=== PATIENT | female | born 1960 | race Caucasian/White ===

== ENCOUNTER 2024-06-15 15:54 | Emergency (ER) | payer OTHER, SELFPAY ==
[2024-06-15 15:58] VITALS: BP 119/56; PULSE 60; TEMP 36.5; O2SAT 97; BMI 37.1
--- NOTE | 2024-06-15 16:04 | XR_ITS ---
The [address] [address] Patient Name: SHEFALI MAY MRN: [id number] date: 1960 Sex: F Assigned Patient Location: ER Current Patient Location: ER Accession/Order Number: [id number] Exam Date: 06/15/2024 16:30 Report Date: 06/15/2024 17:35 At the request of: INEZ HUMPHREYS Procedure: XR forearm LT 2V EXAM: XR forearm LT 2V, XR wrist DIONY min 3V, XR hand DIONY 2V HISTORY: pain fall COMPARISON: None. TECHNIQUE: Multiple views of bilateral wrists and hands as well as 2 views of the left forearm FINDINGS: Acute complete comminuted impacted intra-articular distal radial fracture is seen with extension to the radiocarpal joint and dorsal angulation of distal fracture fragment. Displaced avulsion fracture of the left ulnar styloid is seen. Soft tissue swelling seen about the left wrist. Joint alignment is normal. Joint spaces are preserved. A questionable cortical irregularity of the radial aspect of the right proximal fifth metacarpal may be seen, which may represent a subtle acute fracture. Please correlate clinically. Please note images of the bilateral hands are limited as oblique view is not obtained. No acute fracture is seen about the right wrist. XR/XR forearm LT 2V IMPRESSION: Acute comminuted impacted and angulated intra-articular distal left radial fracture. Displaced avulsion fracture of the ulnar styloid of the left wrist. A questionable cortical irregularity of the radial aspect of the right proximal fifth metacarpal may be seen, which may represent a subtle acute fracture. Please correlate clinically. Electronically authenticated by: ALMA MELTON Date: 06/15/2024 17:35
--- NOTE | 2024-06-15 16:04 | XR_ITS ---
The [address] [address] Patient Name: SHEFALI MAY MRN: [id number] date: 1960 Sex: F Assigned Patient Location: ER Current Patient Location: Accession/Order Number: [id number] Exam Date: 06/15/2024 16:30 Report Date: 06/15/2024 17:35 At the request of: INEZ HUMPHREYS Procedure: XR hand DIONY 2V EXAM: XR forearm LT 2V, XR wrist DIONY min 3V, XR hand DIONY 2V HISTORY: pain fall COMPARISON: None. TECHNIQUE: Multiple views of bilateral wrists and hands as well as 2 views of the left forearm FINDINGS: Acute complete comminuted impacted intra-articular distal radial fracture is seen with extension to the radiocarpal joint and dorsal angulation of distal fracture fragment. Displaced avulsion fracture of the left ulnar styloid is seen. Soft tissue swelling seen about the left wrist. Joint alignment is normal. Joint spaces are preserved. A questionable cortical irregularity of the radial aspect of the right proximal fifth metacarpal may be seen, which may represent a subtle acute fracture. Please correlate clinically. Please note images of the bilateral hands are limited as oblique view is not obtained. No acute fracture is seen about the right wrist. XR/XR hand DIONY 2V IMPRESSION: Acute comminuted impacted and angulated intra-articular distal left radial fracture. Displaced avulsion fracture of the ulnar styloid of the left wrist. A questionable cortical irregularity of the radial aspect of the right proximal fifth metacarpal may be seen, which may represent a subtle acute fracture. Please correlate clinically. Electronically authenticated by: ALMA MELTON Date: 06/15/2024 17:35
--- NOTE | 2024-06-15 16:04 | XR_ITS ---
The [address] [address] Patient Name: SHEFALI MAY MRN: [id number] date: 1960 Sex: F Assigned Patient Location: ER Current Patient Location: Accession/Order Number: [id number] Exam Date: 06/15/2024 16:30 Report Date: 06/15/2024 17:35 At the request of: INEZ HUMPHREYS Procedure: XR wrist DIONY min 3V EXAM: XR forearm LT 2V, XR wrist DIONY min 3V, XR hand DIONY 2V HISTORY: pain fall COMPARISON: None. TECHNIQUE: Multiple views of bilateral wrists and hands as well as 2 views of the left forearm FINDINGS: Acute complete comminuted impacted intra-articular distal radial fracture is seen with extension to the radiocarpal joint and dorsal angulation of distal fracture fragment. Displaced avulsion fracture of the left ulnar styloid is seen. Soft tissue swelling seen about the left wrist. Joint alignment is normal. Joint spaces are preserved. A questionable cortical irregularity of the radial aspect of the right proximal fifth metacarpal may be seen, which may represent a subtle acute fracture. Please correlate clinically. Please note images of the bilateral hands are limited as oblique view is not obtained. No acute fracture is seen about the right wrist. XR/XR wrist DOINY min 3V IMPRESSION: Acute comminuted impacted and angulated intra-articular distal left radial fracture. Displaced avulsion fracture of the ulnar styloid of the left wrist. A questionable cortical irregularity of the radial aspect of the right proximal fifth metacarpal may be seen, which may represent a subtle acute fracture. Please correlate clinically. Electronically authenticated by: ALMA MELTON Date: 06/15/2024 17:35
[2024-06-15] MEDS: KETOROLAC TROMETHAMINE 60 MG/2 ML VIAL IM (16:16)
[2024-06-15] MEDS: OXYCODONE HCL/ACETAMINOPHEN 5MG/325MG 1 TAB PO (16:50)
[2024-06-15] MEDS: LIDOCAINE HCL 1% 100 MG/10 ML MDV INJ (16:51)
--- NOTE | 2024-06-15 18:24 | XR_ITS ---
The [address] [address] Patient Name: SHEFALI MAY MRN: [id number] date: 1960 Sex: F Assigned Patient Location: ER Current Patient Location: Accession/Order Number: [id number] Exam Date: 06/15/2024 18:35 Report Date: 06/15/2024 19:50 At the request of: INEZ HUMPHREYS Procedure: XR forearm LT 2V EXAM: XR forearm LT 2V HISTORY: post reduction COMPARISON: XR forearm LT 2V Study Date: 06/15/2024 4:14:36 PM TECHNIQUE: 2 views of the left forearm FINDINGS: Images are obtained without the left forearm in a splint which obscures bony detail. Acute comminuted impacted angulated intra-articular distal radial fracture is again seen with improved alignment, but with mild persistent angulation. Ulnar styloid fracture is also again seen. XR/XR forearm LT 2V IMPRESSION: Images are obtained without the left forearm in a splint which obscures bony detail. Acute comminuted impacted angulated intra-articular distal radial fracture is again seen with improved alignment, but with mild persistent angulation. Ulnar styloid fracture is also again seen. Electronically authenticated by: ALMA MELTON Date: 06/15/2024 19:50
--- NOTE | 2024-06-15 18:25 | ED_ITS ---
HPI HPI - General Adult General Chief complaint: Extremity Injury, Upper Stated complaint: FALL Time Seen by Provider: 06/15/24 15:59 Source: patient Mode of arrival: walk-in Limitations: no limitations History of Present Illness HPI narrative: Patient is coming to the ER after he sustained a work injury she was at work when she tripped and fell on her both arms. She is complaining of right hand pain as well as left forearm deformity is obvious on examination. The patient ready brought to us with a splint applied Related Data Home Medications ?Medication ?Instructions ?Recorded ?Confirmed lisinopril 10 mg tablet 10 mg PO DAILY 06/15/24 06/15/24 Previous Rx's ?Medication ?Instructions ?Recorded cephalexin 500 mg capsule 500 mg PO Q8H 7 days #21 caps 06/15/24 oxycodone-acetaminophen 5 mg-325 1 tab PO Q8H PRN pain 5 days #15 06/15/24 mg tablet (Percocet) tabs Allergies Allergy/AdvReac Type Severity Reaction Status Date / Time No Known Drug Allergies Allergy Verified 06/15/24 16:01 Opioid HPI Opioid Management Most Recent Opioid Data: Last Pain Scale 6 06/15/24 16:50 Last MAR Pain Assessment 06/15/24 16:50 Review of Systems ROS Status of ROS 10 or more systems reviewed and unremark able except as noted in history and below Exam Narrative Exam Narrative: Nurses notes and vital signs reviewed and patient is not hypoxic. General: Well-appearing and in no apparent distress. Skin: Warm, dry, no pallor noted. No rash. Head: Normocephalic, atraumatic. Neck: Supple, non-tender. Eye: Pupils are equal, round and EOMI. No scleral icterus. Ears, Nose, Mouth, and Throat: TM are clear, no nasal mucosal hypertrophy. Oral mucosa is moist, no posterior oropharynx erythema, uvula is mid-line Cardiovascular: Regular Rate and Rhythm without murmur, gallop or rub. Respiratory: No accessory muscle use or respiratory distress. Lungs are clear to auscultation, no wheezing, rales or rhonchi Chest Wall: no tenderness Back: No midline thoracic or lumbar vertebral tenderness. No CVA tenderness Musculoskeletal: Obvious deformity of the left forearm mostly at the distal radius and the patient also have swelling in the right hand no vascular injury detected patient have a good radial pulse and capillary refill GI: Abdomen is soft, non-distended. Normal bowel sounds. No masses appreciated. No tenderness to palpation. No rebound, guarding, or rigidity noted. Neurological: A&O x4. No cranial nerve dysfunction observed. No truncal ataxia. Moves all extremities. Sensation intact. Psychiatric: Cooperative and interactive. Normal mood and affect. Constitutional Vital Signs, click to edit/add: Last Vital Signs Temp 97.7 F 06/15/24 15:58 Pulse 60 06/15/24 15:58 Resp 18 06/15/24 15:58 BP 119/56 06/15/24 15:58 Pulse Ox 97 06/15/24 15:58 O2 Del Method Room Air 06/15/24 15:58 Course Vital Signs Vital signs: Vital Signs Temperature 97.7 F 06/15/24 15:58 Pulse Rate 60 06/15/24 15:58 Respiratory Rate 18 06/15/24 15:58 Blood Pressure 119/56 06/15/24 15:58 Pulse Oximetry 97 06/15/24 15:58 Oxygen Delivery Method Room Air 06/15/24 15:58 Temperature 97.7 F 06/15/24 15:58 Pulse Rate 60 06/15/24 15:58 Respiratory Rate 18 06/15/24 15:58 Blood Pressure 119/56 06/15/24 15:58 Pulse Oximetry 97 06/15/24 15:58 Oxygen Delivery Method Room Air 06/15/24 15:58 Medical Decision Making MDM Narrative Medical decision making narrative: X-ray of the patient's left forearm showed obvious fracture and the patient had a hematoma block applied with infiltrating the area with 1% lidocaine almost 5 cc The patient then had her case discussed with Dr. Flower the plan is to take an x-ray postreduction and discussed the case with him after that I Dr. Flower the results of the x-ray after reduction and according to him this is better but she still need to be evaluated by him in his [place] office tomorrow at 8 AM The patient work comp papers were filled and I did update the worker at [facility] according to the number provided for update about the fact that the patient will need Percocet as well as possible surgery tomorrow The patient to stay n.p.o. after midnight and also to elevate her arm The patient also instructed about the proper care of her splint including the right hand splint after she have a metacarpal fracture on the x-ray of the right hand Patient to come back to us in case of any new symptoms of concern but she will follow-up with Dr. Flower tomorrow at 8 AM as well as work comp Discharge Plan Discharge Stand Alone Forms: Portal Instructions Chief Complaint: Extremity Injury, Upper Clinical Impression: Fracture of ulnar styloid, Left radial fracture, Fracture of metacarpal Patient Disposition: Home, Self-Care Time of Disposition Decision: 19:12 Condition: Good Prescriptions / Home Meds: New oxycodone-acetaminophen [Percocet] 5-325 mg tablet 1 tab PO Q8H PRN (Reason: pain) 5 Days Qty: 15 0RF cephalexin 500 mg capsule 500 mg PO Q8H 7 Days Qty: 21 0RF No Action lisinopril 10 mg tablet 10 mg PO DAILY Print Language: Sri Lankan Instructions: Arm Fracture in Adults (DC), Hand Fracture (DC) Referrals: [facility] [Outside] - As soon as possible ANTHONY SALDANA [Primary Care Provider] - 1 week González Flower MD [Physician] - 06/16/24 8:00 am (Address: [address] [place] [address] Dr Lind [address] [place] [id number] Hours: Closed ? Opens 8?AM Wed )
[2024-06-15 19:45] VITALS: BP 138/89; PULSE 78; O2SAT 97
== END 2024-06-15 19:45 | disposition home or self-care (01) ==
PROVIDERS: Emergency Provider Emergency Medicine; PCP Family Medicine
DX: S52.502A Unspecified fracture of the lower end of left radius, initial encounter for closed fracture (principal); S62.306A Unspecified fracture of fifth metacarpal bone, right hand, initial encounter for closed fracture; S52.612A Displaced fracture of left ulna styloid process, initial encounter for closed fracture; W01.0XXA Fall on same level from slipping, tripping and stumbling without subsequent striking against object, initial encounter
CPT/HCPCS: 25605; 73090; 73110; 73120; 96372; 99285; J1885

== ENCOUNTER 2024-06-18 07:54 | Outpatient (OUT) | payer SELFPAY ==
--- NOTE | 2024-06-18 08:07 | ECG_ITS ---
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
[2024-06-18 09:42] LABS: Anion Gap 13.7; BUN Creatinine Ratio 14.5; Calcium 9.4 mg/dL (8.5-10.1); Carbon Dioxide 26.5 mmol/L (21.0-32.0); Chloride 101 mmol/L (98-107); Estimated GFR (African America >60 (>=60); Estimated GFR (Non-African Ame >60 (>=60); Glucose 126 mg/dL (74-106); Potassium 4.2 mmol/L (3.5-5.1); Sodium 137 mmol/L (136-145)
[2024-06-18 09:49] LABS: Basophils Absolute Auto 0.1 10^3/uL (0.0-0.1); Basophils Percent Auto 0.8 % (0.2-2.0); Eosinophils Absolute Auto 0.5 10^3/uL (0.0-0.7); Eosinophils Percent Auto 4.2 % (0.9-7.0); Hematocrit 39.4 % (36.0-48.0); Hemoglobin 11.6 g/dL (12.0-16.0); Immature Granulocytes Abs Auto 0.03 10^3/uL (0.00-0.03); Immature Granulocytes Pct Auto 0.3 % (0.0-0.5); Lymphocytes Absolute Auto 2.1 10^3/uL (1.2-3.8); Mean Corpuscular HGB Conc 29.4 g/dL (29.9-35.2); Mean Corpuscular Volume 61.1 fL (81.0-99.0); Monocytes Absolute Auto 0.6 10^3/uL (0.3-0.8); Monocytes Percent Auto 5.7 % (1.7-12.0); Neutrophils Absolute Auto 7.3 10^3/uL (1.4-6.5); Platelet Count 378 10^3/uL (150-450); Red Blood Count 6.45 10^6/uL (4.20-5.40); Red Cell Distribution Width 17.3 % (11.0-15.0); White Blood Count 10.6 10^3/uL (4.0-11.0)
[2024-06-18 09:52] LABS: INR 0.95; Partial Thromboplastin Time 27.6 sec (22.3-36.2); Prothrombin Time 10.1 sec (9.0-11.6)
== END 2024-06-18 07:55 | disposition home or self-care (01) ==
LOC: PST 07:55
PROVIDERS: PCP Family Medicine; Visit Provider Orthopaedic Surgery
DX: Z01.810 Encounter for preprocedural cardiovascular examination (principal); Z01.812 Encounter for preprocedural laboratory examination; S52.509A Unspecified fracture of the lower end of unspecified radius, initial encounter for closed fracture
CPT/HCPCS: 80048; 85025; 85610; 85730; 93005

== ENCOUNTER 2024-06-23 12:22 | Day surgery (SDC) | payer OTHER, SELFPAY ==
[2024-06-18 08:44] VITALS: BP 130/79; PULSE 56; TEMP 36.6; O2SAT 98; BMI 37.6
[2024-06-23] VITALS (10 sets, daily range): BP systolic 111–142; BP diastolic 49–73; PULSE 80–91; TEMP 36.4; O2SAT 91–98; BMI 37.3
[2024-06-23 12:33] LABS: Basophils Absolute Auto 0.1 10^3/uL (0.0-0.1); Eosinophils Absolute Auto 0.5 10^3/uL (0.0-0.7); Hematocrit 39.5 % (36.0-48.0); Hemoglobin 11.6 g/dL (12.0-16.0); Immature Granulocytes Abs Auto 0.03 10^3/uL (0.00-0.03); Immature Granulocytes Pct Auto 0.3 % (0.0-0.5); Lymphocytes Absolute Auto 2.5 10^3/uL (1.2-3.8); Lymphocytes Percent Auto 28.2 % (20.5-60.0); Mean Corpuscular HGB Conc 29.4 g/dL (29.9-35.2); Mean Corpuscular Volume 61.1 fL (81.0-99.0); Mean Platelet Volume 9.4 fL (9.5-13.5); Monocytes Absolute Auto 0.6 10^3/uL (0.3-0.8); Monocytes Percent Auto 6.4 % (1.7-12.0); Neutrophils Absolute Auto 5.2 10^3/uL (1.4-6.5); Neutrophils Percent Auto 58.1 % (43.0-75.0); Platelet Count 461 10^3/uL (150-450); Red Blood Count 6.46 10^6/uL (4.20-5.40); Red Cell Distribution Width 17.4 % (11.0-15.0); White Blood Count 8.9 10^3/uL (4.0-11.0)
[2024-06-23] MEDS: LACTATED RINGER'S SOLUTION 1,000 ML 50 ML IV (12:52)
[2024-06-23] MEDS: SCOPOLAMINE 1 MG/3 DAYS TRANSDERM PATCH 1 PATCH TD (13:20)
--- NOTE | 2024-06-23 14:00 | FL_ITS ---
[address] [address] Patient Name: SHEFALI MAY MRN: [id number] date: 1960 Sex: F Assigned Patient Location: SURGOUT Current Patient Location: [facility] Accession/Order Number: [id number] Exam Date: 06/23/2024 14:10 Report Date: 06/25/2024 08:17 At the request of: ANA DRIVER Procedure: FL fluoroscopy <1hr NON-READ EXAM: FL fluoroscopy <1hr NON-READ HISTORY: TECHNIQUE: FINDINGS: Please see Operative Report. Electronically authenticated by: RADIOLOGIST NO Date: 06/25/2024 08:17
[2024-06-23] MEDS: CEFAZOLIN SODIUM/DEXTROSE,ISO 2 GM/50 ML PIGGYBACK IV (14:08)
--- NOTE | 2024-06-23 16:10 | P.ORPRC_ITS ---
Procedure Note Date of procedure: 06/23/24 Pre-op diagnosis: Greater than 4 part intra-articular left distal radius fracture Post-op diagnosis: same as pre-op Procedure: Procedure: Open reduction internal fixation left distal radius fracture Surgeon: Hunter Flower MD Anesthesia: General with regional block Estimated blood loss: Minimal Specimens: None Complications: None Condition: Stable Consent: The risks, benefits, potential complications and outcomes of the proposed treatment(s) were discussed at length with the patient and family members present. They understood and have had all of their questions answered to their satisfaction and have elected to proceed. Findings: Reduced distal radius fracture with appropriate implant placement and lengths Detailed Description of Procedure: After informed consent was obtained the patient brought to the operating room where general anesthetic was administered. Preoperatively regional block was placed. A well-padded proximal arm tourniquet was placed on the right arm was prepped and draped in usual sterile fashion. The arm was elevated, exsanguinated, and the tourniquet was inflated to 225 mmHg. A 6 cm incision made overlying the flexor carpi radialis tendon overlying the distal radius. Blunt dissection was carried down through soft tissue. The flexor carpi radialis tendon was retracted ulnarly along with the flexor pollicis longus muscle and tendon. Pronator quadratus was incised in an L- shaped fashion off of the bone. Distal radius fracture was identified at this point and found to be intra-articular and comminuted. Using a combination of traction and manipulation and reduction was performed and appropriate reduction was confirmed under x-ray. A Synthes by column distal radius plate was then placed and provisionally held into place with K wires. This was adjusted until the appropriate position was achieved under multiple fluoroscopy views. The plate was then first fixed with a 2.7 bicortical nonlocking screw in the oblong hole in the shaft. Holding the distal fragments reduced a total of 6 unicortical 2.4 mm locking screws were placed at the distal fragments followed by an additional 2 screws placed in the shaft in a bicortical locking fashion. Final x-rays in multiple planes revealed a reduced distal radius fracture with appropriate implant placement and lengths. Wound was irrigated. Pronator quadratus was repaired with an 0 Vicryl suture. Skin was closed with observable suture in layers. Well-padded dressing was placed followed by a fiberglass volar splint. Turning was deflated. Patient was awakened and brought to the recovery room in stable condition. There are no intraoperative or immediate postoperative complications. Surgeon: González Flower Estimated blood loss (mL): 5 Pathology: none sent Condition: stable Disposition: PACU
== END 2024-06-23 17:40 | disposition home or self-care (01) ==
PROVIDERS: Anesthesiology; PCP Family Medicine; Visit Provider Orthopaedic Surgery
PROC: (CPT 25609; principal; 2024-06-23 12:30)
DX: S52.572A Other intraarticular fracture of lower end of left radius, initial encounter for closed fracture (principal); W01.0XXA Fall on same level from slipping, tripping and stumbling without subsequent striking against object, initial encounter
CPT/HCPCS: 25609; 36415; 64417; 76000; 85025; C1713; J0330; J0690; J1100; J1885; J2250; J2371; J2405; J2795

== ENCOUNTER 2024-07-05 08:16 | Outpatient (OUT) | payer OTHER, SELFPAY ==
--- NOTE | 2024-07-05 | XR_ITS ---
The [address] [address] Patient Name: SHEFALI MAY MRN: [id number] date: 1960 Sex: F Assigned Patient Location: Current Patient Location: Accession/Order Number: [id number] Exam Date: 07/05/2024 08:25 Report Date: 07/07/2024 04:37 At the request of: ANA DRIVER Procedure: XR wrist LT min 3V PROCEDURE: XR wrist LT min 3V HISTORY: LEFT WRIST PAIN COMPARISON: XR form left 06/15/2024 FINDINGS: BONES:Surgical repair of comminuted distal radius fracture via anterior plate and screws; no appreciable hardware fracture loosening. Improved alignment of previously seen comminuted fractures with intra-articular extension. Displaced fracture of ulnar styloid process. Intact carpal bones. SOFT TISSUES:Mild soft tissue swelling. Images were obtained through cast material. EFFUSION:None visible. OTHER: Negative. XR/XR wrist LT min 3V IMPRESSION: 1. Surgical repair of distal left radius comminuted fractures without evidence of hardware failure. 2. Grossly stable displaced ulnar styloid process fracture. Electronically authenticated by: ANA LUCAS Date: 07/07/2024 04:37
--- OUTSIDE RECORDS SUMMARY | 2024-07-05 08:19 | XMS_ITS | CCD ---
Author Organization [facility] Care Team Providers Care Sales Representative Groceries Name Role Phone LES, DR CRUZ Attending Unavailable LES, DR CRUZ Consulting Unavailable LES, DR CRUZ Admitting Unavailable KHADIJAH STANLEY Attending Unavailable Problems Active Problems Problem Classification Problem Date Documented Da te Episodic/Chronic Unclassified (2 sources) CONTACT W/AND (SUSP) EXPOS COVID-19; Translations: [CONTACT W/AND (SUSP) EXPOS COVID-19] Onset: 12-13-2021 Viral infection (1 source) COVID-19; Translations: [COVID-19] Onset: 12-13-2021 Past or Other Problems Problem Classification Problem Date Documented Da te Episodic/Chronic Unclassified (1 source) CONTACT W/AND (SUSP) EXPOS COVID-19; Translations: [CONTACT W/AND (SUSP) EXPOS COVID-19] Onset: 12-07-2021 Results Test Name Value Interpretation Reference Range Facil ity Covid-19 PCR (CVDTBH)on SARS-CoV-2 (COVID-19) RNA KAIDEN+probe Ql (Unsp spec) Detected Critically abnormal NOT DETECTED The [facility] Comment on above: Result Comment: This test is not yet estrella roved or cleared by the [place] FDA. When there are no FDA-approved or cleared tests available, and other criteria are met, FDA can make tests available under an emergency access mechanism called an Emergency Use Authorization (EUA). The EUA for this test is supported by the [employer] of Health and Human Service's (HHS's) declaration that circumstances exist to justify the emergency use of in vitro diagnostics for the detection and/or diagnosis of the virus that causes COVID-19. This EUA will remain in effect (meaning this test can be used) for the duration of the COVID-19 declaration justifying emergency of IVDs, unless it is terminated or revoked by FDA (after which the test may no longer be used). Performed By: #### [facility] #### [facility] [address] [place], [place] [address] Dr. Arnoldo Spaulding Encounters Encounter Date Encounter Type Care Provider Facility Start: 12-30-2023 End: 12-30-2023 ambulatory KHADIJAH STANLEY Not Available Start: 12-07-2021 End: 12-07-[address] ANTHONY SALDANA Facility: Payers Date Payer Category Payer Unknown [id number] 1960 Unknown [id number] 1960 Unknown [id number] 1957 Unknown [id number] Summary Purpose Family History No Family History Records FoundNo Family History Records Found Advance Directives No Advanced Directives Records FoundNo Advanced Directives Records Found Additional Source Comments INFORMATION SOURCE (unrecogn ized section and content) DATE CREATED AUTHOR 12/14/2021 [facility] DATE CREATED AUTHOR AUTHOR'S ORGANIZ ATION 01/01/2024 [facility] EPIC FOR RECORDS PERTAINING TO PATIENTS WHO ARE OR HAVE BEEN ENROLLED IN A CHEMICAL DEPENDENCY/SUBSTANCEABUSE PROGRAM, SOME INFORMATION MAY BE OMITTED. This clinical summary was aggregated from multiple sources. Caution should be exercised in using it in the provision of clinical care. This summary normalizes information from multiple sources, and as a consequence, information in this document may materially change the coding, format and clinical context of patient data. In addition, data may be omitted in some cases. CLINICAL DECISIONS SHOULD BE BASED ON THE PRIMARY CLINICAL RECORDS. [employer] provides no warranty or guarantee of the accuracy or completeness of information in this document.
== END 2024-07-05 08:17 | disposition home or self-care (01) ==
PROVIDERS: PCP Family Medicine; Visit Provider Orthopaedic Surgery
DX: S52.509D Unspecified fracture of the lower end of unspecified radius, subsequent encounter for closed fracture with routine healing (principal); Z98.890 Other specified postprocedural states
CPT/HCPCS: 73110

== ENCOUNTER 2024-08-09 08:11 | Outpatient (OUT) | payer OTHER, SELFPAY ==
--- NOTE | 2024-08-09 | XR_ITS ---
The [address] [address] Patient Name: SHEFALI MAY MRN: [id number] date: 1960 Sex: F Assigned Patient Location: Current Patient Location: Accession/Order Number: [id number] Exam Date: 08/09/2024 08:22 Report Date: 08/09/2024 15:56 At the request of: ANA DRIVER Procedure: XR wrist DIONY min 2v EXAMINATION: XR wrist DIONY min 2v HISTORY: BILATERAL WRIST PAIN COMPARISON: 07/05/2024 FINDINGS: RIGHT FINDINGS: BONES: Remote ulnar styloid process fracture with sclerosis. No acute fracture or dislocation. SOFT TISSUES: Negative. No visible soft tissue swelling. OTHER: Negative. LEFT FINDINGS: BONES: Stable complex distal radius fracture with internal fixation utilizing a plate and screws. Able remote ulnar styloid process fracture No acute fracture or dislocation. SOFT TISSUES: Negative. No visible soft tissue swelling. OTHER: Negative. XR/XR wrist DIONY min 2v IMPRESSION: RIGHT CONCLUSION: No acute fracture LEFT CONCLUSION: Interval healing complex radius fracture with internal fixation Electronically authenticated by: SANKET LOBO Date: 08/09/2024 15:56
== END 2024-08-09 08:12 | disposition home or self-care (01) ==
LOC: EC 08:11
PROVIDERS: PCP Family Medicine; Visit Provider Orthopaedic Surgery
DX: S52.572D Other intraarticular fracture of lower end of left radius, subsequent encounter for closed fracture with routine healing (principal); S62.346A Nondisplaced fracture of base of fifth metacarpal bone, right hand, initial encounter for closed fracture
CPT/HCPCS: 73100

== ENCOUNTER 2024-09-06 08:59 | Outpatient (OUT) | payer OTHER, SELFPAY ==
--- NOTE | 2024-09-06 | XR_ITS ---
The [address] [address] Patient Name: SHEFALI MAY MRN: [id number] date: 1960 Sex: F Assigned Patient Location: Current Patient Location: Accession/Order Number: [id number] Exam Date: 09/06/2024 09:05 Report Date: 09/06/2024 10:49 At the request of: ANA DRIVER Procedure: XR wrist DIONY min 3V EXAMINATION: XR wrist DIONY min 3V HISTORY: BILATERAL WRIST PAIN COMPARISON: 06/15/2024 FINDINGS: RIGHT FINDINGS: BONES: No acute fracture or dislocation. Mild degenerative changes. SOFT TISSUES: Negative. No visible soft tissue swelling. OTHER: Negative. LEFT FINDINGS: BONES: Stable complex distal radius fracture with internal fixation utilizing a right and screws. Continued healing with bone formation. SOFT TISSUES: Negative. No visible soft tissue swelling. OTHER: Negative. XR/XR wrist DIONY min 3V IMPRESSION: RIGHT CONCLUSION: Mild degenerative change LEFT CONCLUSION: Stable healing distal radius fracture with internal fixation Electronically authenticated by: SANKET LOBO Date: 09/06/2024 10:49
== END 2024-09-06 09:00 | disposition home or self-care (01) ==
LOC: EC 09:04
PROVIDERS: PCP Family Medicine; Visit Provider Orthopaedic Surgery
DX: S52.572D Other intraarticular fracture of lower end of left radius, subsequent encounter for closed fracture with routine healing (principal); S62.346D Nondisplaced fracture of base of fifth metacarpal bone, right hand, subsequent encounter for fracture with routine healing
CPT/HCPCS: 73110

== ENCOUNTER 2024-12-03 09:24 | Outpatient (OUT) | payer OTHER, SELFPAY ==
--- NOTE | 2024-12-03 09:31 | MR_ITS ---
The [address] [address] Patient Name: SHEFALI MAY MRN: [id number] date: 1960 Sex: F Assigned Patient Location: MRI Current Patient Location: Accession/Order Number: [id number] Exam Date: 12/03/2024 09:45 Report Date: 12/05/2024 13:09 At the request of: ANA DRIVER Procedure: MR wrist LT wo con EXAM: MR wrist LT wo con REASON FOR EXAM: Closed Intra Articular Fracture Distal End Left Radius. TECHNIQUE: Multiplanar, multisequence imaging of the left wrist was performed without contrast COMPARISON: Radiographs 09/06/2024. FINDINGS: Study degraded by motion susceptibility artifact. There are possible changes from ORIF of a distal radius fracture. The visualized bone marrow signal is without acute fracture or osteonecrosis. Probable ununited ulnar styloid fracture. The visualized intercarpal articulations are intact. No asymmetric widening the scapholunate or lunotriquetral articulations is evident. No radial ulnar sided synovitis. The carpal tunnel is mildly crowded. The median nerve does not appear to be edematous. Guyon's canal is patent. The visualized extensor tendons demonstrate grossly normal thickness and signal without tendinosis or tear. Remaining soft tissues are unremarkable. MR/MR wrist LT wo con IMPRESSION: 1. Post surgical changes without acute osseous abnormality. 2. Ununited ulnar styloid fracture. 3. Mildly crowded carpal tunnel with nonedematous median nerve Electronically authenticated by: DAGOBERTO ROBERTS Date: 12/05/2024 13:09
--- OUTSIDE RECORDS SUMMARY | 2024-12-03 09:37 | XMS_ITS | CCD ---
Author Organization [facility] Care Team Providers Care Contact Center Engineer Name Role Phone DR NONI SALDANA Attending Unavailable LES, DR CRUZ Consulting Unavailable LES, DR CRUZ Admitting Noni Raygoza MD Primary Care Provider KHADIJAH STANLEY Attending Unavailable CIERRA ATKINS Attending Augustineab Noni Donovan MD Primary Care Provider Cris Bishop Primary Care Physician Cris Ruiz Unavailable Unavailable ANA DRIVER Referring Unavailable NONI SALDANA Primary Care Unavailable ANA DRIVER Referring Unavailable NONI SALDANA Primary Care Unavailable ANA DRIVER Referring Unavailable NONI SALDANA Primary Care Unavailable ANA DRIVER Referring Unavailable NONI SALDANA Primary Care Unavailable NONI SALDANA Primary Care Unavailable ANA DRIVER Referring Unavailable Medications Current Medications Medication Drug Class(es) Dates Sig (Normalized) Sig (Original) acetaminophen 325 mg oral tablet (3 sources) acetaminophen (Tylenol) 325 MG tablet every 4 (four) hours. Active Calcium Carbonate / vitamin D3 (1 source) take 1 tablet by mouth once daily calcium carbonate/vitamin D3 (CALCIUM+D ORAL) Take 1 tablet by mouth daily. Active ibuprofen 200 mg oral tablet (3 sources) Nonsteroidal Anti-inflammatory Drug ibuprofen 200 MG tablet every 8 (eight) hours. Active lisinopril 10 mg oral tablet (6 sources) Angiotensin Converting Enzyme Inhibitor Start: 10-19-2024 take 1 tablet by mouth once daily, then take 1 tablet by mouth in the morning lisinopril 10 MG tablet Indications: Primary hypertension (CMS/HCC) Take 1 tablet (10 mg) by mouth Daily TAKE 1 TABLET(10 MG) BY MOUTH IN THE MORNING 90 tablet 3 10/19/2024 Active Start: 10-19-2024 take 1 tablet by bassam th once daily, then take 1 tablet by mouth in the morning lisinopril 10 MG tablet Indications: Primary hypertension (CMS/HCC) Take 1 tablet (10 mg) by mouth Daily TAKE 1 TABLET(10 MG) BY MOUTH IN THE MORNING 90 tablet 3 10/19/2024 Active Start: 10-14-2024 End: 10-19-2024 take 1 tablet by mouth once daily, then take 1 tablet by mouth in the morning lisinopril 10 MG tablet Indications: Primary hypertension (CMS/HCC) Take 1 tablet (10 mg) by mouth Daily TAKE 1 TABLET(10 MG) BY MOUTH IN THE MORNING 90 tablet 10/14/2024 10/19/2024 Discontinued (Reorder) Problems Active Problems Problem Classification Problem Date Documented Date Episodic/Chronic Deficiency and other anemia (3 sources) Thalassemia; Translations: [Thalassemia, unspecified] Onset: 06-30-2023 06-30-2023 Chronic Deficiency and other anemia (5 sources) Anemia; Translations: [Anemia, unspecified] Onset: 06-30-2023 06-30-2023 Episodic Diabetes mellitus without complication (5 sources) Prediabetes; Translations: [Prediabetes] Onset: 06-30-2023 06-30-2023 Episodic Essential hypertension (8 sources) Essential hypertension; Translations: [Essential (primary) hypertension] Onset: 06-30-2023 06-30-2023 Chronic Fracture of upper limb (5 sources) Closed fracture of distal end of radius; Translations: [Other fractures of lower end of left radius, subsequent encounter for closed fracture with routine healing] Onset: 11-02-2024 10-19-2024 Episodic Fracture of upper limb (1 source) Nondisplaced fracture of base of fifth metacarpal bone, right hand, initial encounter for closed fracture; Translations: [Nondisplaced fracture of base of fifth metacarpal bone, right hand, initial encounter for closed fracture] Onset: 11-02-2024 Episodic Osteoarthritis (7 sources) Bilateral osteoarthritis of knees; Translations: [Bilateral primary osteoarthritis of knee] Onset: 04-28-2019 06-30-2023 Chronic Other and ill-defined heart disease (5 sources) Cardiomegaly; Translations: [Cardiomegaly] Onset: 06-30-2023 06-30-2023 Chronic Other nervous system disorders (5 sources) Chronic pain; Translations: [Other chronic pain] Onset: 06-30-2023 06-30-2023 Chronic Other nutritional; endocrine; and metabolic disorders (7 sources) Body mass index 30+ - obesity; Translations: [Obesity, unspecified] Onset: 06-30-2023 06-30-2023 Chronic Other nutritional; endocrine; and metabolic disorders (3 sources) Obesity caused by energy imbalance; Translations: [Morbid (severe) obesity due to excess calories] Onset: 04-29-2019 10-19-2024 Chronic Other screening for suspected conditions (not mental disorders or infectious disease) (6 sources) Patient encounter status; Translations: [Encounter for screening for lipoid disorders] 10-19-2024 Episodic Residual codes; unclassified (6 sources) Obstructive sleep apnea syndrome; Translations: [Obstructive sleep apnea (adult) (pediatric)] Onset: 04-29-2019 06-30-2023 Chronic Residual codes; unclassified (1 source) Sleep apnea, unspecified Chronic Unclassified (2 sources) CONTACT W/AND (SUSP) EXPOS COVID-19; Translations: [CONTACT W/AND (SUSP) EXPOS COVID-19] Onset: 12-13-2021 Viral infection (1 source) COVID-19; Translations: [COVID-19] Onset: 12-13-2021 Past or Other Problems Problem Classification Problem Date Documented Da te Episodic/Chronic Unclassified (1 source) CONTACT W/AND (SUSP) EXPOS COVID-19; Translations: [CONTACT W/AND (SUSP) EXPOS COVID-19] Onset: 12-07-2021 Unclassified (2 sources) Patient encounter status 10-19-2024 Results Test Name Value Interpretation Reference Range Facil ity Covid-19 PCR (CVDTBH)on SARS-CoV-2 (COVID-19) RNA KAIDEN+probe Ql (Unsp spec) Detected Critically abnormal NOT DETECTED [facility] Comment on above: Result Comment: This test is not yet estrella roved or cleared by the [place] FDA. When there are no FDA-approved or cleared tests available, and other criteria are met, FDA can make tests available under an emergency access mechanism called an Emergency Use Authorization (EUA). The EUA for this test is supported by the Practicing Md Anesthesiologist of Health and Human Service's (HHS's) declaration [...] longer be used). Performed By: #### [facility] #### [facility] [address] [place] [address] Dr. Arnoldo Spaulding Vital Signs Date Time Vital Sign Value Performing Clinician Vijaya rod 11-02-2024 12:42-0500 Body height 171.45 cm [facility] 11-02-2024 12:42-0500 Body mass index (BMI) [Ratio] 38.73 kg/m2 [facility] 11-02-2024 12:42-0500 Body surface area Derived from formula 2.33 m2 [facility] 11-02-2024 12:42-0500 Body weight 113.85 kg [facility] 11-02-2024 12:42-0500 Diastolic blood pressure 78 mm[Hg] [facility] 11-02-2024 12:42-0500 Heart rate 74 /min [facility] 11-02-2024 12:42-0500 Systolic blood pressure 110 mm[Hg] [facility] 10-19-2024 08:33-0500 Body height 168.9 cm Cierra Atkins NP Work Phone: [facility] 10-19-2024 08:33-0500 Body mass index (BMI) [Ratio] 39.91 kg/m2 Cierra Atkins [employer]EL[employer] Work Phone: [facility] 10-19-2024 08:33-0500 Body temperature 97.39 [degF] Cierra Atkins [employer]EL[employer] Work Phone: [facility] 10-19-2024 08:33-0500 Body weight 113.85 kg Cierra Atkins [employer]EL[employer] Work Phone: [facility] 10-19-2024 08:33-0500 Diastolic blood pressure 80 mm[Hg] Cierra Atkins X R[employer] DEVELOPER Work Phone: [facility] 10-19-2024 08:33-0500 Systolic blood pressure 126 mm[Hg] Cierra Atkins X RAY DEVELOPER Work Phone: [facility] Encounters Encounter Date Encounter Type Care Provider Facility Start: 11-02-2024 [facility] Start: 11-02-2024 Split Srvc Cris Harris rne Other [facility] Start: 11-01-2024 End: 11-01-2024 Telephone encounter Sarah Akers RN [facility] Start: 10-19-2024 End: 10-19-2024 Bamboo flowsheet Cierra Atkins X RAY DEVELOPER Work Phone: [facility] Start: 10-19-2024 End: 10-19-2024 Bamboo flowsheet Cierra Atkins X RAY DEVELOPER Work Phone: [facility] Start: 10-19-2024 End: 10-19-2024 Patient encounter status Cierra Atkins [employer]EL[employer] Work Phone: [facility] Start: 10-19-2024 End: 10-19-2024 Periodic preventive med est patient 40-64yrs Cierra Atkins [employer] DEVELOPER Work Phone: [facility] Comment on above: Primary hypertension (CMS/HCC) (Primary Dx); Morbid (severe) obesity due to excess calories (CMS/HCC); Essential (primary) hypertension (CMS/HCC); Body mass index (BMI) 38.0-38.9, adult; Obstructive sleep apnea; Cardiomegaly; Other chronic pain; Osteoarthritis of both knees, unspecified osteoarthritis type; Obesity (BMI 30-39.9); Anemia, unspecified type; Prediabetes; Encounter for wellness examination in adult; Encounter for lipid screening for cardiovascular disease; Screening for colon cancer; Encounter for screening mammogram for breast cancer; Other closed fracture of distal end of left radius with routine healing, subsequent encounter Start: 10-19-2024 End: 10-19-2024 ambulatory CIERRA ATKINS Not Available Start: 10-01-2024 ambulatory [facility] Start: 08-31-2024 ambulatory [facility] Start: 08-04-2024 ambulatory [facility] Start: 07-06-2024 End: 08-01-2024 ambulatory NONI SALDANA [facility] Start: 12-30-2023 End: 12-30-2023 ambulatory KHADIJAH STANLEY Not Available Start: 12-07-2021 End: 12-07-[address] NONI SALDANA Facility:[facility] Procedures Date Procedure Procedure Detail Performing Clinician Start: 11-02-2024 Nerve conduction kenneth dies 5-6 studies Cris Bishop Start: 01-02-2023 Mammography Cierra miramontes [employer] DEVEL[employer] Work Phone: Start: 11-17-2014 Colonoscopy Cierra miramontes NP Work Phone: Plan of Treatment Date Care Activity Detail Author Start: 12-14-2024 Influenza vaccination Influenza Vacc ine (#1) [facility] Comment on above: Postponed from 08/01 (Patient Refused) Start: 11-17-2024 Screening for malign ant neoplasm of colon [facility] Start: 10-19-2024 End: 10-19-2025 CBC W Auto Differential panel - Blood CBC and differential Lab Routine Anemia, unspecified type Encounter for wellness examination in adult Expected: 10/19/2024 (Approximate), Expires: 10/19/2025 [facility] Comment on above: Expected: 10/19/2024 (Approximate), Expires: 10/19/2025 Start: 10-19-2024 End: 10-19-2025 Comprehensive metabolic 2000 panel - Serum or Plasma Comprehensive metabolic panel Lab Routine Essential (primary) hypertension (CMS/HCC) Encounter for wellness examination in adult Expected: 10/19/2024 (Approximate), Expires: 10/19/2025 [facility] Work Phone: Comment on above: Expected: 10/19/2024 (Approximate), Expires: 10/19/2025 Start: 10-19-2024 End: 12-19-2025 DBT Breast - bilateral screening Bilateral screening mammogram with tomosynthesis Imaging Routine Encounter for screening mammogram for breast cancer Expected: 10/19/2024, Expires: 12/19/2025 [facility] Comment on above: Expected: 10/19/2024 , Expires: 12/19/2025 Start: 10-19-2024 End: 10-19-2025 Lipid 1996 panel - Serum or Plasma Lipid panel Lab Routine Encounter for wellness examination in adult Encounter for lipid screening for cardiovascular disease Expected: 10/19/2024 (Approximate), Expires: 10/19/2025 [facility] Comment on above: Expected: 10/19/2024 (Approximate), Expires: 10/19/2025 Start: 10-19-2024 End: 10-19-2025 TSH W/REFLEX TO FT4 TSH W/REFLEX TO FT4 Lab Routine Encounter for wellness examination in adult Expected: 10/19/2024 (Approximate), Expires: 10/19/2025 [facility] Comment on above: Expected: 10/19/2024 (Approximate), Expires: 10/19/2025 Start: 10-19-2024 End: 10-19-2024 Patient encounter procedure 10/19/2024 8:30 AM EST Office Visit [facility] [address] [place] [id number] Cierra Atkins NP [address] [place] [address] Arrived [facility] Comment on above: Arrived Start: 08-01-2024 COVID-19 Vaccine ( season) COVID-19 Vaccine ( season) [facility] Start: 08-01-[address] [facility] Start: 01-02-2024 Adult BMI Screening Adult BMI Screen ing [facility] Start: 01-02-2024 Screening for malign ant neoplasm of breast Mammogram [facility] Start: 01-04-2023 DTaP,Tdap and Td Vaccines (2 - Td or Tdap) DTaP,Tdap and Td Vaccines (2 - Td or Tdap) [facility] Start: 2012 Administration of varicella zoster vaccine Zoster (Shingles) Vaccine (1 of 2) [facility] Start: 1992 Screening for malign ant neoplasm of cervix [facility] Start: 1983 Screening for malign ant neoplasm of cervix Pap Smear [facility] Start: 1974 Depression Screening Depression Scre ening [facility] Start: 1974 Tobacco Screening Tobacco Screening [facility] Start: 1962 Screening for malign ant neoplasm of colon [facility] Immunizations Immunization Date Immunization Notes Care Provider Grisel shah 12-30-2023 influenza, injectabl e, quadrivalent, preservative free Cierra Atkins [employer] DEVELOPER Work Phone: [facility] 12-30-2023 influenza virus vaccine, unspecified formulation Cierra Atkins X R[employer] DEVELOPER Work Phone: [facility] 09-24-2022 influenza, injectabl e, quadrivalent, preservative free Cierra Atkins X R[employer] DEVELOPER Work Phone: [facility] 08-21-2021 influenza, injectabl e, quadrivalent, preservative free Cierra Atkins X RAY DEVELOPER Work Phone: [facility] 09-16-2019 influenza, injectabl e, quadrivalent, contains preservative Cierra Atkins X RAY DEVELOPER Work Phone: [facility] 01-04-2013 tetanus toxoid, redu kehinde diphtheria toxoid, and acellular pertussis vaccine, adsorbed Cierra Atkins NP Work Phone: [facility] Payers Date Payer Category Payer Managed Care Other (unspecified) [employer] [id number] 2022 Private Health Insurance [employer] [id number] 2022 Unknown [id number] 1962 Unknown [id number] 1962 Unknown [id number] 1962 Unknown [id number] 1962 Unknown [id number] 1962 Unknown [id number] 1962 Unknown [id number] 1962 Unknown [id number] 1962 Unknown [id number] 1959 Unknown [id number] Unknown [id number] Worker's Comp, Other (unspecified) WORKER'S COMPENSATION - GENERIC PLAN [id number] Unknown [id number] Social History Date Type Detail Facility Start: 04-08-2019 End: 06-28-2023 Tobacco smoking status IDIS Never smoked tobacco [facility] Start: 04-08-2019 End: 06-28-2023 Tobacco use and exposure Smokeless tobacco non-user [facility] Start: 01-02-2023 End: 12-30-2023 Alcoholic beverage intake Current drinker of alcohol (finding) [facility] Start: 01-11-2021 End: 12-30-2023 History of Social function [facility] Start: 01-11-2021 End: 12-30-2023 Humiliation, Afraid, Rape, and Kick questionnaire [HARK] [facility] Within the last year , have you been afraid of your partner or ex-partner? No [facility] Do you belong to any clubs or organizations such as faith groups, unions, fraternal or athletic groups, or school groups? Yes [facility] Are you now , , , , never or living with a partner? [facility] How often to you hav e a drink containing alcohol? Monthly or less [facility] How many standard dr inks containing alcohol do you have on a typical day? 1 or 2 [facility] How often do you hav e 6 or more drinks on 1 occasion? Never [facility] How hard is it for y ou to pay for the very basics like food, housing, medical care, and heating Not hard at all [facility] Do you feel stress - tense, restless, nervous, or anxious, or unable to sleep at night because your mind is troubled all the time - these days [OSQ] Not at all [facility] (I/We) worried whejose roberto er (my/our) food would run out before (I/we) got money to buy more. Never true [facility] Start: 06-30-2023 Alcohol Comment caffeine 3-4 cups/day, alcohol monthly or less [facility] Start: 1960 Sex assigned at Not on file [facility] Start: 02-12-2023 Gender identity Identifies as female gender (finding) [facility] Start: 09-09-2019 Alcohol Comment 1 drink per month [facility] Start: 07-06-2015 Sex Female (finding) [facility] Start: *Tobacco [place] [facility] Procedure Code Equipment Code Equipment Origin al Text Equipment Identifier Dates Brng Tib E1 Vngd As 10x71 Rpl [id number] - [id number] Start: 04-29-2019 Brng Tib E1 Vngd As 10x75 Rpl [id number] - [id number] Start: 09-21-2019 Cmnt Bn Bio 40gm Rpl [id number] - [id number] Start: 04-29-2019 Cmnt Bn Bio 40gm Rpl [id number] - [id number] Start: 09-21-2019 Ty Tib As Mx 71m m Intlk Cocr - [id number] Start: 04-29-2019 Cmpt Fem Kn Rt 67.5mm Cr Cmnt - [id number] Start: 04-29-2019 Cmpt Ptlr Thn 34 mm 3 Pg Kn Ser - [id number] Start: 04-29-2019 Cmpt Ptlr Std 34 mm 3 Pg Kn Ser - [id number] Start: 09-21-2019 Ty Tib As Mx 75m m Intlk Cocr - [id number] Start: 09-21-2019 Cmpt Fem Kn Lt 7 0mm Cr Cmnt - [id number] Start: 09-21-2019 Goals Date Patient Goal Desired Activity /State Personal health goal Comment on above: Formatting of this n ote might be different from the original. Evaluation of progress towards goal: Maximize work with PT at discharge to strengthen R knee Personal health goal Comment on above: Formatting of this n ote might be different from the original. Evaluation of progress towards goal: Maximize work with PT at discharge to strengthen L knee Note 11-01-2024 Telephone Encounter - Cassi Joseph - 11/01/2024 3:15 PM EST Note Date & Type Note Facility 11-01-2024 Miscellaneous Notes Formattin g of this note might be different from the original. Called [facility] regarding the screening colonoscopy referral that our office received from Cierra Atkins NP, left message on voicemail to call the office back to schedule an appointment. Also called on: 10/27 LM TRC 10/20 LM SE documented in this encounter [facility] Telephone encounter Note 11-01-2024 Telephone Encounter - Cassi Joseph - 11/01/2024 3:15 PM EST Note Date & Type Note Facility 11-01-2024 Telephone encount er Note Called [facility] regarding the screening colonoscopy referral that our office received from Cierra Atkins NP, left message on voicemail to call the office back to schedule an appointment. Also called on: 10/27 LM TRC 10/20 LM SE [facility] History of Present illness Narrative 10-19-2024 Cierra Willingham Milly, X RAY DEVELOPER - 10/19/2024 8:30 AM EST Note Date & Type Note Facility 10-19-2024 History of Presen t illness Narrative Images from the original note were not included. [facility] is a 63 y.o. female presents with chief complaint of Annual Exam HPI: HPI Patient is present for an annual wellness. SUBJECTIVE: MEDICATIONS: Current Outpatient Medications Medication Instructions acetaminophen (Tylenol) 325 MG tablet Every 4 hours ibuprofen 200 MG tablet Every 8 hours lisinopril 10 mg, Oral, Daily, TAKE 1 TABLET(10 MG) BY MOUTH IN THE MORNING I have reviewed and reconciled the history and medication list with the patient today. REVIEW OF SYMPTOMS: Review of Systems Constitutional: Negative for chills and fatigue. HENT: Negative for ear discharge, ear pain, rhinorrhea and sore throat. Eyes: Negative for pain and redness. Respiratory: Negative for cough and chest tightness. Cardiovascular: Negative for chest pain and palpitations. Gastrointestinal: Negative for abdominal distention and abdominal pain. Genitourinary: Negative for difficulty urinating and frequency. Musculoskeletal: Negative for arthralgias and gait problem. Skin: Negative. Neurological: Negative for dizziness and numbness. Endocrine: Negative. Allergic/Immunologic: Negative. OBJECTIVE: Visit Vitals Smoking Status Never Physical Exam Vitals reviewed. Constitutional: Appearance: Normal appearance. HENT: Head: Normocephalic. Right Ear: Hearing and tympanic membrane normal. Left Ear: Hearing and tympanic membrane normal. Nose: Nose normal. Right Turbinates: Not enlarged. Left Turbinates: Not enlarged. Right Sinus: No maxillary sinus tenderness or frontal sinus tenderness. Left Sinus: No maxillary sinus tenderness or frontal sinus tenderness. Mouth/Throat: Lips: [place]. Mouth: Mucous membranes are moist. Pharynx: Oropharynx is clear. Uvula midline. Tonsils: No tonsillar exudate. Eyes: General: Lids are normal. Vision grossly intact. Gaze aligned appropriately. Extraocular Movements: Extraocular movements intact. Conjunctiva/sclera: Conjunctivae normal. Neck: Thyroid: No thyroid mass or thyromegaly. Vascular: No carotid bruit. Trachea: Trachea normal. Cardiovascular: Rate and Rhythm: Normal rate and regular rhythm. Pulses: Normal pulses. Heart sounds: Normal heart sounds. Pulmonary: Effort: Pulmonary effort is normal. Breath sounds: Normal breath sounds and air entry. Abdominal: General: Abdomen is flat. Bowel sounds are normal. Palpations: Abdomen is soft. Musculoskeletal: Cervical back: Full passive range of motion without pain, normal range of motion and neck supple. Lymphadenopathy: Cervical: No cervical adenopathy. Skin: General: Skin is warm. Capillary Refill: Capillary refill takes less than 2 seconds. Neurological: Mental Status: She is alert and oriented to person, place, and time. Sensory: Sensation is intact. Motor: Motor function is intact. Coordination: Coordination is intact. Psychiatric: Attention and Perception: Attention and perception normal. Mood and Affect: Mood and affect normal. Speech: Speech normal. Behavior: Behavior is cooperative. Thought Content: Thought content normal. ASSESSMENT AND PLAN: Assessment/Plan Diagnoses and all orders for this visit: Primary hypertension (CMS/HCC)-stable continue on current medications - lisinopril 10 MG tablet; Take 1 tablet (10 mg) by mouth Daily TAKE 1 TABLET(10 MG) BY MOUTH IN THE MORNING Morbid (severe) obesity due to excess calories (CMS/HCC) Essential (primary) hypertension (CMS/HCC) - Comprehensive metabolic panel; Future Body mass index (BMI) 38.0-38.9, adult Obstructive sleep apnea-stable Cardiomegaly Other chronic pain Osteoarthritis of both knees, unspecified osteoarthritis type Obesity (BMI 30-39.9) Anemia, unspecified type - CBC and differential; Future Prediabetes Encounter for wellness examination in adult - Comprehensive metabolic panel; Future - CBC and differential; Future - Lipid panel; Future - TSH W/REFLEX TO FT4; Future Wellness performed at [facility] today. Height, weight, BMI, problem list, and immunizations records reviewed. Encounter for lipid screening for cardiovascular disease - Lipid panel; Future Screening for colon cancer - Ambulatory referral to General Surgery; Future Encounter for screening mammogram for breast cancer - Bilateral screening mammogram with tomosynthesis; Future Other closed fracture of distal end of left radius with routine healing, subsequent encounter Stable following with ortho and still in P.T. documented in this encounter [facility] Evaluation note Note Date & Type Note Facility Evaluation note Diagnosis Primary hypertension (CMS/HCC)- Primary Unspecified essential hypertension Morbid (severe) obesity due to excess calories (CMS/HCC) Essential (primary) hypertension (CMS/HCC) Unspecified essential hypertension Body mass index (BMI) 38.0-38.9, adult Obstructive sleep apnea Obstructive sleep apnea (adult) (pediatric) Cardiomegaly Other chronic pain Osteoarthritis of both knees, unspecified osteoarthritis type Obesity (BMI 30-39.9) Anemia, unspecified type Prediabetes Other abnormal glucose Encounter for wellness examination in adult Encounter for lipid screening for cardiovascular disease Screening for colon cancer Special screening for malignant neoplasms, colon Encounter for screening mammogram for breast cancer Other closed fracture of distal end of left radius with routine healing, subsequent encounter documented in this encounter [facility] Instructions Note Date & Type Note Facility Instructions Not on filedocumented in this en counter [facility] Summary Purpose Family History No Family History Records FoundNo Family History Records FoundNo Family History Records Found Advance Directives No Advanced Directives Records Found Date Activated Date Inactivated Comments 09/21/2019 5:58 PM 09/22/2019 1:09 PM Date Activated Date Inactivated Comments 04/29/2019 12:47 PM 04/30/2019 12:35 PM Additional Source Comments INFORMATION SOURCE (unrecogn ized section and content) DATE CREATED AUTHOR 12/14/2021 [facility] DATE CREATED AUTHOR AUTHOR'S ORGANIZ ATION 10/21/2024 [facility] EPIC DATE CREATED AUTHOR AUTHOR'S ORGANIZ ATION 11/25/2024 [facility] Care Teams (unrecognized sec tion and content) Contact Center Engineer Relationship Specialty Start Date End Date Noni Saldana MD [address] [place] [address] PCP - General Family Medicine 06/26/23 Contact Center Engineer Relationship Specialty Start Date End Date Noni Saldana MD [address] [place] [address] PCP - General Family Medicine 06/26/23 Contact Center Engineer Relationship Specialty Start Date End Date Noni Saldana MD [address] [place] [address] PCP - General Family Medicine 03/25/17 Reason for Visit (unrecogniz ed section and content) Reason Comments Annual Exam FOR RECORDS PERTAINING TO PATIENTS WHO ARE [...] BE BASED ON THE PRIMARY CLINICAL RECORDS. [employer] [facility] [employer] [facility] provides no warranty or guarantee of the accuracy or completeness of information in this document.
== END 2024-12-03 09:25 | disposition home or self-care (01) ==
LOC: MRI 09:24
PROVIDERS: PCP Family Medicine; Visit Provider Orthopaedic Surgery
DX: S52.572D Other intraarticular fracture of lower end of left radius, subsequent encounter for closed fracture with routine healing (principal); Z98.890 Other specified postprocedural states; S52.612K Displaced fracture of left ulna styloid process, subsequent encounter for closed fracture with nonunion
CPT/HCPCS: 73221

== ENCOUNTER 2025-01-31 08:33 | Outpatient (OUT) | payer OTHER, SELFPAY ==
--- NOTE | 2025-01-31 | XR_ITS ---
The [address] [address] Patient Name: SHEFALI MAY MRN: [id number] date: 1960 Sex: F Assigned Patient Location: Current Patient Location: Accession/Order Number: [id number] Exam Date: 01/31/2025 16:41 Report Date: 01/31/2025 16:43 At the request of: ANA DRIVER MD Procedure: XR wrist LT min 3V LEFT WRIST - 3 views CLINICAL HISTORY: Follow-up left wrist ORIF COMPARISON: Wrist series 09/06/2024 FINDINGS: No hardware complication. No change in alignment of the distal radius fracture. No significant change in healing. Configuration of the distal ulna is unchanged. Carpus demonstrate degenerative change also similar to the prior study. XR/XR wrist LT min 3V IMPRESSION: NO HARDWARE COMPLICATION. NO SIGNIFICANT CHANGE IN HEALING. THE FRACTURE LINE IS NOT CLEARLY SEEN. Impression dictated by: Enrique Mcclendon Jr., DDeannaODeanna01/31/2025 4:43 PM Dictation Location: [employer] Electronically authenticated by: [id number] Y Date: 01/31/2025 16:43
== END 2025-01-31 08:34 | disposition home or self-care (01) ==
LOC: EC 08:33
PROVIDERS: PCP Family Medicine; Visit Provider Orthopaedic Surgery
DX: S52.572D Other intraarticular fracture of lower end of left radius, subsequent encounter for closed fracture with routine healing (principal)
CPT/HCPCS: 73110

== ENCOUNTER 2025-05-10 07:54 | Outpatient (RCR) | payer OTHER, SELFPAY | END 2025-05-11 07:41 | disposition home or self-care (01) | LOC: OT 07:54 | PROVIDERS: PCP Family Medicine; Visit Provider Orthopaedic Surgery | DX: M19.132 Post-traumatic osteoarthritis, left wrist (principal); S52.509D Unspecified fracture of the lower end of unspecified radius, subsequent encounter for closed fracture with routine healing; S62.346D Nondisplaced fracture of base of fifth metacarpal bone, right hand, subsequent encounter for fracture with routine healing | CPT/HCPCS: 97750 ==